=== PATIENT | female | born 1990 | race Caucasian/White ===

== ENCOUNTER 2017-03-01 00:04 | Emergency (ER) | payer OTHER ==
[~2017-03-01] VITALS: Ht 175.3 cm; Wt 108.3 kg
--- NOTE | 2017-03-01 00:53 | PHYS DOC ---
General Chief Complaint: NEEDLE STICK Stated Complaint: STABBED WITH SYRINGE Time Seen by MD: 00:09 Source: patient Exam Limitations: no limitations Problems: History of Present Illness Initial Comments Patient is a 26-year-old female employee at [employer] since the emergency department for worker's comp evaluation of needle stick injury. 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 One of the needles was uncapped it was a 21-gauge 1-1/2 inch clean appearing needle that grazed her left thumb becoming very slightly embedded in her epidermis before she could remove it. No bleeding she irrigated the area and reported to her employer sent her for testing. On arrival she is upset her blood pressure is elevated but she denies any related symptoms including no chest pain trouble breathing headache or focal neurologic deficit. Onset: just prior to arrival Severity: mild Pain/Injury Location: left thumb Method of Injury: other Modifying Factors: improves with other Allergies: Coded Allergies: Penicillins (Verified Allergy, Intermediate, 03/01/17) Past Medical History Medical History: no pertinent history Surgical History: noncontributory Social History Smoker: non-smoker Alcohol: none Drugs: none Review of Systems Constitutional: denies chills, denies diaphoresis, denies fever Respiratory: denies cough, denies shortness of breath Cardiovascular: denies chest pain, denies palpitations Gastrointestinal: denies diarrhea, denies nausea, denies vomiting Musculoskeletal: denies back pain, denies joint swelling, denies neck pain Skin: see HPI Physical Exam General Appearance: WD/WN, obese Neck: non-tender, supple Cardiovascular/Respiratory: normal peripheral pulses, no respiratory distress Hand: normal inspection, non-tender Neurologic/Tendon: normal sensation, normal motor functions, normal tendon functions, responds to pain, no evidence tendon injury Psychiatric: alert, oriented x 3 Skin: normal color, warm/dry Orders, Labs, Meds Urine test is negative HIV and acute hepatitis panel studies drawn. Facility needle stick packet reviewed, by their criteria no post exposure prophylaxis is indicated. As tetanus status unknown Tdap administered in the emergency department. I discussed close follow-up with her employer for results and further evaluation and testing/treatment as needed. Patient expressed agreement and understanding with treatment plan. Departure Time of Disposition: 00:51 Disposition: 01 HOME, SELF-CARE Diagnosis: needle stick injury, body fluid exposure Condition: GOOD Patient Instructions: Body Fluid Exposure, Needle Stick Injury, [id number], VIS, Tetanus, Diphtheria (Td); Tetanus, Diphtheria, Pertussis (Tdap) - CDC Additional Instructions: Please review the patient education materials given by ED staff. Follow-up with your employer for results and further treatment and testing if indicated. Return to ED with new or changing symptoms and as needed. KATIE DOVER DO Mar 01, 2017 00:53
[2017-03-01 01:05] VITALS: BP 118/85
[2017-03-01] MEDS ORDERED: DIPHTH,PERTUSS(ACELL),TET TOX 0.5 ML DISP.SYRIN. VAX IM ONE (01:30)
[2017-03-02 14:08] LABS: HCV ANTIBODY <0.1 s/co ratio (0.0-0.9); HEP A IGM ABDY Negative (Negative)
== END 2017-03-01 01:08 | disposition home or self-care (01) ==
LOC: ER 00:04
DX: S69.92XA Unspecified injury of left wrist, hand and finger(s), initial encounter (principal); Z77.21 Contact with and (suspected) exposure to potentially hazardous body fluids; Z88.0 Allergy status to penicillin; W46.0XXA Contact with hypodermic needle, initial encounter; Y93.89 Activity, other specified; Y99.0 Civilian activity done for income or pay; Y92.89 Other specified places as the place of occurrence of the external cause
CPT/HCPCS: 36415; 80074; 81025; 86701; 86702; 86703; 87535; 90471; 90715; 99284-25

== ENCOUNTER 2018-10-31 01:30 | Emergency (ER) | payer OTHER ==
[~2018-10-31] VITALS: Ht 172.7 cm; Wt 113.4 kg
[2018-10-31 01:51] VITALS: BP 133/86
--- NOTE | 2018-10-31 01:51 | ED.ADGEN ---
Past History Past Medical History: Bronchitis, Gallstones Past Surgical History: Cholecystectomy Alcohol Use: None Drug Use: None Adult General Chief Complaint Chief Complaint ".. 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 and it was between building.. and I got a sharp.. pop like sensation,, in my Lt. lower back.. and then bad back pain.. it radiates all the way down my Lt. leg. into my foot... ".. " I hurt it about 8 (2000 hrs).. but it not gotten better.. ".. 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 Patient rates her pain as severe. Patient states low back with us injured pushing a cart while at work. Patient developed left lower flank. Lumbar muscle spasm and radiation of pain down her sciatic nerve to her foot.. Injury occurred approximately 2000 hours. Patient denies any problems with defecation or urination. No saddle loss. Donald engel denies any history of fever or chills. Patient denies any history immunosuppression. Patient denies previous history of back injury. Pain is exacerbated with straight leg lift on the left. Patient is ambulatory with limp. Review of Systems Review of Systems Constitutional: Denies fever or chills [] Eyes: Denies change in visual acuity, redness, or eye pain [] HENT: Denies nasal congestion or sore throat [] Respiratory: Denies cough or shortness of breath [] Cardiovascular: No additional information not addressed in HPI [] GI: Denies abdominal pain, nausea, vomiting, bloody stools or diarrhea [] : Denies dysuria or hematuria [] Musculoskeletal: Plaints of lower lumbar back pain and sciatica on the left Integument: Denies rash or skin lesions [] Neurologic: Denies headache, focal weakness or sensory changes [] Endocrine: Denies polyuria or polydipsia [] All other systems were reviewed and found to be within normal limits, except as documented in this note. Family History Family History Noncontributory Current Medications Current Medications Current Medications Medications (Trade) Dose Ordered Sig/Dominique Start Time Stop Time Status Last Admin Dose Admin Acetaminophen (Tylenol) 1,000 mg 1X ONCE 10/31/18 02:30 10/31/18 02:55 DC 10/31/18 02:34 1,000 MG Ketorolac Tromethamine (Toradol Im) 60 mg 1X ONCE 10/31/18 02:30 10/31/18 02:55 DC 10/31/18 02:34 60 MG Methylprednisolone Acetate (DEPO-Medrol IM) 40 mg 1X ONCE 10/31/18 02:30 10/31/18 02:55 DC 10/31/18 02:34 40 MG Allergies Allergies Allergies Coded Allergies Type Severity Reaction Last Updated Verified Penicillins Allergy Intermediate 03/01/17 Yes Physical Exam Physical Exam Constitutional: Well developed, well nourished, in acute distress, non-toxic appearance. [] HENT: Normocephalic, atraumatic, bilateral external ears normal, oropharynx moist, no oral exudates, nose normal. [] Eyes: PERRLA, EOMI, conjunctiva normal, no discharge. [] Neck: Normal range of motion, no tenderness, supple, no stridor. [] Cardiovascular:Heart rate regular rhythm, no murmur [] Lungs & Thorax: Bilateral breath sounds clear to auscultation [] Abdomen: Bowel sounds normal, soft, no tenderness, no masses, no pulsatile masses. [] Skin: Warm, dry, no erythema, no rash. [] Back: No tenderness, no CVA tenderness. [] Extremities: No tenderness, no cyanosis, no clubbing, ROM intact, no edema. [] Neurologic: Alert and oriented X 3, normal motor function, normal sensory function, no focal deficits noted. [] Psychologic: Affect normal, judgement normal, mood normal. [] Current Patient Data Vital Signs Vital Signs Date Time Temp Pulse Resp B/P (MAP) Pulse Ox O2 Delivery O2 Flow Rate FiO2 10/31/18 01:51 98.3 94 18 99 Room Air Lab Results Laboratory Tests Test 10/31/18 01:40 10/31/18 01:55 Urine Collection Type Unknown Urine Color Yellow Urine Clarity Hazy Urine pH 5.5 Urine Specific [place] >=1.030 Urine Protein Trace (NEG-TRACE) Urine Glucose (UA) Neg mg/dL (NEG) Urine Ketones (Stick) Neg mg/dL (NEG) Urine Blood Neg (NEG) Urine Nitrite Neg (NEG) Urine Bilirubin Neg (NEG) Urine Urobilinogen Dipstick 0.2 mg/dL (0.2 mg/dL) Urine Leukocyte Esterase Neg (NEG) Urine RBC 1-2 /HPF (0-2) Urine WBC Occ /HPF (0-4) Urine Squamous Epithelial Cells Mod /LPF Urine Bacteria Few /HPF (0-FEW) Urine Mucus Slight /LPF Urine Opiates Screen Neg (NEG) Urine Methadone Screen Neg (NEG) Urine Barbiturates Neg (NEG) Urine Phencyclidine Screen Neg (NEG) Urine Amphetamine/Methamphetamine Neg (NEG) Urine Benzodiazepines Screen Neg (NEG) Urine Cocaine Screen Neg (NEG) Urine Cannabinoids Screen Neg (NEG) Urine Ethyl Alcohol Neg (NEG) POC Urine HCG, Qualitative hcg negative (Negative) EKG EKG [] Radiology/Procedures Radiology/Procedures [][address] [address] IMAGING REPORT Signed PATIENT: POP WAN ACCOUNT: [id number] : 1990 LOCATION: ER AGE: 28 SEX: F EXAM STATUS: REG ER ORD. PHYSICIAN: KVNG VEGA MD REASON: back injury [facility] PROCEDURE: CT LUMBAR SPINE WO CONTRAST CT LUMBAR SPINE WO CONTRAST dated 10/31/2018 2:50 AM Indication: Back pain. Recent injury. Comparison: None Technique: Contiguous axial imaging of lumbar spine performed with thin cut coronal and sagittal reconstructions. One or more of the following individualized dose reduction techniques were utilized for this examination: 1. Automated exposure control 2. Adjustment of the mA and/or kV according to patient size 3. Use of iterative reconstruction technique Findings: Sagittal alignment is anatomic. Vertebral body heights are maintained. Mild endplate hypertrophic changes throughout. No evidence of fracture. Posterior elements are intact. There is mild broad-based posterior bulging at L3-L4 and L4-L5 and L5-S1. No significant central canal compromise. The bony foramen are adequate. Images of the retroperitoneum are unremarkable. Mild sclerotic changes at the bilateral SI joint. IMPRESSION: 1. No evidence of fracture or malalignment. 2. Mild multilevel spondylosis. Electronically signed by: Stalin Krause MD (10/31/2018 3:18 AM) [id number] DICTATED AND SIGNED BY: STALIN KRAUSE MD DATE: 10/31/18 0318 CC: KVNG VEGA MD; PCP,NO ~ Course & Med Decision Making Course & Med Decision Making Pertinent Labs and Imaging studies reviewed. (See chart for details).. Ice packs as needed. Take Flexeril 10 and Vicoprofen for marked discomfort and muscle spasms. Tylenol and Ibuprofen as needed for flores. Follow up with work comp. Return if any concerns. [] Final Impression Final Impression 1. Back strain 2. Sciatica[] Dragon Disclaimer Dragon Disclaimer This electronic medical record was generated, in whole or in part, using a voice recognition dictation system. Dragon Disclaimer This chart was dictated in whole or in part using Voice Recognition software in a busy, high-work load, and often noisy Emergency Department environment. It may contain unintended and wholly unrecognized errors or omissions. KVNG VEGA MD Oct 31, 2018 01:51
[2018-10-31 02:05] LABS: BARBITURATES NEG (NEG); BENZODIAZEPINES NEG (NEG); CANNABINOIDS NEG (NEG); COCAINE NEG (NEG); METHADONE NEG (NEG); OPIATES NEG (NEG); PHENCYCLIDINE NEG (NEG)
[2018-10-31 02:07] LABS: BACTERIA,URINE FEW /HPF (0-FEW); BILIRUBIN,URINE NEG (NEG); CLARITY,URINE HAZY; COLOR,URINE YELLOW; GLUCOSE,URINE NEG (NEG); NITRITE,URINE NEG (NEG); SQUAMOUS EPITHELIAL CELL,UR MOD /LPF; UROBILINOGEN,URINE 0.2 mg/dL (0.2 mg/dL); WBC,URINE OCC /HPF (0-4)
[2018-10-31 02:08] LABS: AMPHETAMINE/METHAMPHETAMINE NEG (NEG)
[2018-10-31] MEDS ORDERED: KETOROLAC 60 MG/2 ML VIAL. IM ONE (02:30)
[2018-10-31] MEDS ORDERED: ACETAMINOPHEN 500 MG TABLET PO ONE (02:30)
[2018-10-31] MEDS ORDERED: methylPREDNISolone ACETATE 40 MG/ML VIAL. IM ONE (02:30)
--- NOTE | 2018-10-31 03:21 | RAD ---
CT LUMBAR SPINE WO CONTRAST dated 10/31/2018 2:50 AM Indication: Back pain. Recent injury. Comparison: None Technique: Contiguous axial imaging of lumbar spine performed with thin cut coronal and sagittal reconstructions. One or more of the following individualized dose reduction techniques were utilized for this examination: 1. Automated exposure control 2. Adjustment of the mA and/or kV according to patient size 3. Use of iterative reconstruction technique Findings: Sagittal alignment is anatomic. Vertebral body heights are maintained. Mild endplate hypertrophic changes throughout. No evidence of fracture. Posterior elements are intact. There is mild broad-based posterior bulging at L3-L4 and L4-L5 and L5-S1. No significant central canal compromise. The bony foramen are adequate. Images of the retroperitoneum are unremarkable. Mild sclerotic changes at the bilateral SI joint. IMPRESSION: 1. No evidence of fracture or malalignment. 2. Mild multilevel spondylosis. Electronically signed by: Stalin Krause MD (10/31/2018 3:18 AM) [facility]
[2018-10-31] MEDS ORDERED: HYDR-1179 PO (03:32)
[2018-10-31] MEDS ORDERED: CYCL-331 PO (03:32)
== END 2018-10-31 03:50 | disposition home or self-care (01) ==
LOC: ER 01:30
DX: S39.012A Strain of muscle, fascia and tendon of lower back, initial encounter (principal); M54.42 Lumbago with sciatica, left side; Z90.49 Acquired absence of other specified parts of digestive tract; Z88.0 Allergy status to penicillin; X50.9XXA Other and unspecified overexertion or strenuous movements or postures, initial encounter; Y93.89 Activity, other specified; Y92.89 Other specified places as the place of occurrence of the external cause; Y99.0 Civilian activity done for income or pay
CPT/HCPCS: 36415; 72131; 80307; 81001; 81025; 96372; 99285; J1030; J1885

== ENCOUNTER 2018-12-20 13:48 | Emergency (ER) | payer SELFPAY ==
[~2018-12-20] VITALS: Ht 172.7 cm; Wt 106.6 kg
[~2018-12-20 13:48] MED LIST: CYCL-331 PO; HYDR-1179 PO
[2018-12-20 13:50] VITALS: BP 183/96
[2018-12-20] MEDS ORDERED: CLIN150C14 PO (14:11)
[2018-12-20] MEDS ORDERED: MELO7.5T29 PO (14:11)
--- NOTE | 2018-12-20 14:11 | PHYS DOC ---
Past History Past Medical History: Bronchitis, Gallstones Past Surgical History: Cholecystectomy Smoking: Cigarettes Alcohol Use: None Drug Use: None Adult General Chief Complaint Chief Complaint: SKIN RASH/ABSCESS HPI HPI Patient is a 28-year-old female presents complaining of a rash and pain to her right jaw. This started several days ago. No relief with diqy-yru-bahdkpv medicines. No pain prior to the appearance of the rash. No fever. She notes some lumps as well in her neck which are uncomfortable. No fever. No difficulty swallowing. No difficulty breathing. Nothing makes the symptoms better or worse. Symptoms are moderate in intensity.[] Review of Systems Review of Systems Constitutional: Denies fever or chills [] Eyes: Denies change in visual acuity, redness, or eye pain [] HENT: Denies nasal congestion or sore throat [] Respiratory: Denies cough or shortness of breath [] Cardiovascular: No chest pain or palpitations[] GI: Denies abdominal pain, nausea, vomiting, bloody stools or diarrhea [] : Denies dysuria or hematuria [] Musculoskeletal: Denies back pain or joint pain [] Integument: See history of present illness[] Neurologic: Denies headache, focal weakness or sensory changes [] Endocrine: Denies polyuria or polydipsia [] All other systems were reviewed and found to be within normal limits, except as documented in this note. Allergies Allergies Allergies Coded Allergies Type Severity Reaction Last Updated Verified Penicillins Allergy Intermediate 03/01/17 Yes Physical Exam Physical Exam Constitutional: Well developed, well nourished, no acute distress, non-toxic appearance. [] HENT: Normocephalic, atraumatic, bilateral external ears normal, TMs are clear without any blood or fluid, oropharynx moist, no oral exudates, nose normal. [] Eyes: PERRLA, EOMI, conjunctiva normal, no discharge. [] Neck: Normal range of motion, no tenderness, supple, no stridor. [] Cardiovascular:Heart rate regular rhythm, no murmur [] Lungs & Thorax: Bilateral breath sounds clear to auscultation [] Abdomen: Not examined. [] Skin: Warm, dry, erythematous rash with right jaw line. This is approximately 4 cm x 2 cm. There are some vesicles present. Anterior chain cervical lymphade nopathy is present as well. No nuchal rigidity. [] Back: No tenderness, no CVA tenderness. [] Extremities: No tenderness, no cyanosis, no clubbing, ROM intact, no edema. [] Neurologic: Alert and oriented X 3, normal motor function, normal sensory function, no focal deficits noted. [] Psychologic: Affect normal, judgement normal, mood normal. [] EKG EKG [] Radiology/Procedures Radiology/Procedures [] Course & Med Decision Making Course & Med Decision Making Pertinent Labs and Imaging studies reviewed. (See chart for details) Medical decision making: Patient appears to have impetigo. There is no evidence of systemic toxicity. No evidence of airway compromise. No Moura-Ck syndrome, toxic epidural necrolysis, nor staph scalded skin syndrome. We'll treat her with oral outpatient medicine. ED course: Patient arrived, was placed in bed, and tolerated exam well. 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 Discussed findings and plan with the patient who voiced understanding. All questions were answered. She was discharged in improved condition.[] Dragon Disclaimer Dragon Disclaimer This electronic medical record was generated, in whole or in part, using a voice recognition dictation system. Departure Departure: Impression: Primary Impression: Impetigo Disposition: HOME, SELF-CARE Condition: IMPROVED Referrals: PCP,TAWNYA (PCP) Patient Instructions: Impetigo Additional Instructions: Keep the area clean and dry. Follow-up with your regular doctor in 2 days. If you do not have regular doctor list of local clinics will be provided for you. Stop smoking! Your blood pressure was noted to be elevated today. This is something that should be followed by your regular doctor. Return to the ER if worsening rash, fever of more than 101, difficulty breathing, or any other concerns. Scripts Clindamycin Hcl (CLINDAMYCIN HCL) 150 Mg Capsule 2 CAP PO QID for impetigo, #80 CAP Prov: PEDRO LUIS MURO DO 12/20/18 Meloxicam (MELOXICAM) 7.5 Mg Tablet 7.5 MG PO DAILY for PAIN, #20 TAB Prov: PEDRO LUIS MURO DO 12/20/18 PEDRO LUIS MURO DO Dec 20, 2018 14:11
== END 2018-12-20 14:15 | disposition home or self-care (01) ==
LOC: ER 13:48
DX: L01.00 Impetigo, unspecified (principal); R68.84 Jaw pain; F17.210 Nicotine dependence, cigarettes, uncomplicated; Z88.0 Allergy status to penicillin
CPT/HCPCS: 99283

== ENCOUNTER 2019-02-18 11:54 | Emergency (ER) | payer SELFPAY ==
[~2019-02-18] VITALS: Ht 172.7 cm; Wt 111.1 kg
[~2019-02-18 11:54] MED LIST changes: +CLIN150C14 PO; +MELO7.5T29 PO
[2019-02-18] MEDS ORDERED: IPRATRPIUM/ALBUTEROL 0.5/2.5MG 3 ML NEBU. NEB ONE (12:15)
--- NOTE | 2019-02-18 12:19 | PHYS DOC ---
Past History Past Medical History: Bronchitis, Gallstones Past Surgical History: Cholecystectomy Smoking: Cigarettes, Quit Less Than 1 Year Alcohol Use: None Drug Use: None Adult General Chief Complaint Chief Complaint: FLU SYMPTOM HPI HPI Patient is a 28-year-old female presents with a cough for the past month. Symptoms became worse over the past 3-4 days with head and sinus congestion and runny nose. She reports a fever of 102 2 days ago. No relief with ovzb-dql-ncwvhtl medicines to include TheraFlu and Mucinex. She stopped smoking approximately a month ago due to this persistent cough. She has had no out of the country travel. No sick contacts. Some nausea and a couple of episodes of vomiting but is otherwise able to tolerate oral intake. No dysuria or hematuria. No shaking chills. Symptoms are moderate in intensity.[] Review of Systems Review of Systems Constitutional: See history of present illness[] Eyes: Denies change in visual acuity, redness, or eye pain [] HENT: See history of present illness[] Respiratory: Denies shortness of breath, see history of present illness [] Cardiovascular: No chest pain or palpitations[] GI: Denies abdominal pain, nausea, vomiting, bloody stools or diarrhea [] : Denies dysuria or hematuria [] Musculoskeletal: Denies back pain or joint pain [] Integument: Denies rash or skin lesions [] Neurologic: Denies headache, focal weakness or sensory changes [] Endocrine: Denies polyuria or polydipsia [] All other systems were reviewed and found to be within normal limits, except as documented in this note. Allergies Allergies Allergies Coded Allergies Type Severity Reaction Last Updated Verified Penicillins Allergy Intermediate 03/01/17 Yes Physical Exam Physical Exam Constitutional: Well developed, well nourished, no acute distress, non-toxic appearance. [] HENT: Normocephalic, atraumatic, bilateral external ears normal, oropharynx moist, no oral exudates, nose normal. [] Eyes: PERRLA, EOMI, conjunctiva normal, no discharge. [] Neck: Normal range of motion, no tenderness, supple, no stridor. [] Cardiovascular:Heart rate is tachycardic in the 110s with a regular rhythm, no murmur [] Lungs & Thorax: Bilateral inspiratory and expiratory wheezes throughout, no increased work of breathing, speaks full sentences[] Abdomen: Bowel sounds normal, soft, no tenderness, no masses, no pulsatile masses. [] Skin: Warm, dry, no erythema, no rash. [] Back: No tenderness, mild bilateral CVA tenderness. [] Extremities: No tenderness, no cyanosis, no clubbing, ROM intact, no edema. [] Neurologic: Alert and oriented X 3, normal motor function, normal sensory function, no focal deficits noted. [] Psychologic: Affect normal, judgement normal, mood normal. [] Current Patient Data Vital Signs Vital Signs Date Time Temp Pulse Resp B/P (MAP) Pulse Ox O2 Delivery O2 Flow Rate FiO2 02/18/19 12:02 99.6 118 16 93 Room Air EKG EKG [] Radiology/Procedures Radiology/Procedures PROCEDURE: CHEST PA & LATERAL Indication: Cough and wheezing TECHNIQUE: 2 views of the chest COMPARISON: None FINDINGS: Heart is normal in size. Patchy opacities are seen in the lingula. Mild interstitial opacities bilaterally. No pneumothorax or effusion. Visualized bony thorax within normal limits. IMPRESSION: Findings of mild bronchitis. Lingular pneumonia.[] Course & Med Decision Making Course & Med Decision Making Pertinent Labs and Imaging studies reviewed. (See chart for details) ED course: Patient arrived, was placed in bed, and tolerated exam well. She was given a breathing treatment which improved her breath sounds. She reported feeling better after the breathing treatment. She was transferred to and from radiology with any complications. After return of laboratory and imaging findings, these were discussed with the patient voiced understanding. All questions were answered. She was discharged in improved condition with all ques tions answered. Decision making: Patient appears to have a lingular infiltrate. We'll treat her with oral outpatient antibiotics. No evidence of multilobar pneumonia. Nontoxic patient. Will also prescribed prescription strength cough medicines. While she is concerned about flu symptoms, her most recent set of symptoms started approximately 4 days ago and so we'll not order a flu panel because it will not change treatment given that the timeframe for Tamiflu is 48 hours from onset of symptoms. There is no evidence of oral intake intolerance. Nontoxic patient.[] Dragon Disclaimer Dragon Disclaimer This electronic medical record was generated, in whole or in part, using a voice recognition dictation system. Departure Departure: Impression: Primary Impression: Pneumonia Disposition: HOME, SELF-CARE Condition: IMPROVED Referrals: PCP,NO (PCP) Patient Instructions: Pneumonia, Adult Additional Instructions: Drink plenty of fluids. Take the medication as prescribed. Follow-up with your regular doctor in 2 days. If you have no regular doctor a list of local clinics will be provided. Return to the ER if worsening difficulty breathing, or any other concerns. Scripts D-Methorphan Hb/Prometh Hcl (PROMETHAZINE-DM SYRUP) 118 Ml Syrup 5 ML PO PRN Q4HRS for cough and congestion, #120 ML Prov: PEDRO LUIS MURO DO 02/18/19 Albuterol Sulfate (VENTOLIN HFA INHALER) 18 Gm Hfa.aer.ad 2 PUFF IH PRN Q4HRS PRN for FOR ASTHMA, #1 INHALER 0 Refills Prov: PEDRO LUIS MURO DO 02/18/19 Azithromycin (AZITHROMYCIN TABLET) 250 Mg Tablet 1 PKG PO UD for pneumonia for 5 Days, #6 TAB 0 Refills 2 the first day followed by 1 for days 2-5 Prov: PEDRO LUIS MURO DO 02/18/19 Problem Qualifiers Primary Impression: Pneumonia Pneumonia type: due to unspecified organism Laterality: left Lung location: unspecified part of lung Qualified Codes: J18.9 - Pneumonia, unspecified organism PEDRO LUIS MURO DO Feb 18, 2019 12:19
[2019-02-18 12:51] LABS: BILIRUBIN,URINE NEG (NEG); CLARITY,URINE CLEAR; COLOR,URINE YELLOW; GLUCOSE,URINE NEG (NEG); NITRITE,URINE NEG (NEG); UROBILINOGEN,URINE 0.2 mg/dL (0.2 mg/dL)
--- NOTE | 2019-02-18 12:59 | RAD ---
Indication: Cough and wheezing TECHNIQUE: 2 views of the chest COMPARISON: None FINDINGS: Heart is normal in size. Patchy opacities are seen in the lingula. Mild interstitial opacities bilaterally. No pneumothorax or effusion. Visualized bony thorax within normal limits. IMPRESSION: Findings of mild bronchitis. Lingular pneumonia. Electronically signed by: Casey Stern DO (02/18/2019 12:56 PM) [facility]
[2019-02-18] MEDS ORDERED: AZIT250T6 PO (13:13)
[2019-02-18] MEDS ORDERED: ALBU2.5V8 IH (13:13)
[2019-02-18] MEDS ORDERED: PROM118S9 PO (13:14)
[2019-02-18 13:22] VITALS: BP 136/89
== END 2019-02-18 13:20 | disposition home or self-care (01) ==
LOC: ER 11:54
DX: J18.9 Pneumonia, unspecified organism (principal); Z87.891 Personal history of nicotine dependence; Z88.0 Allergy status to penicillin
CPT/HCPCS: 71046; 81003; 81025; 94640; 99284; J7620

== ENCOUNTER 2019-05-18 16:33 | Emergency (ER) | payer SELFPAY ==
[~2019-05-18] VITALS: Ht 175.3 cm; Wt 117.7 kg
[~2019-05-18 16:33] MED LIST changes: +ALBU2.5V8 IH; +AZIT250T6 PO; +PROM118S9 PO
--- NOTE | 2019-05-18 16:42 | PHYS DOC ---
Past History Past Medical History: Bronchitis, Gallstones Past Surgical History: Cholecystectomy Smoking: Cigarettes, Quit Less Than 1 Year Alcohol Use: None Drug Use: None Adult General Chief Complaint Chief Complaint: COUGH HPI HPI 29F with PMH of asthma, tobacco abuse, p/w URI Sx over last few weeks, primarily productive cough, nasal congestion and SOA with wheezing. Daily smoker, but has not smoked for the last couple weeks due to her illness. No CP or fever. Also having some mild posttussive emesis, nonbloody, without abd pain, diarrhea, or other GI/ complaints. No aggravating or alleviating factors. Review of Systems Review of Systems General: No fevers, chills. Eyes: No blurred vision, diplopia. ENT: No sore throat. Reports nasal congestion. CV: No chest pain, edema. Resp: Reports wheezing, shortness of breath, cough. GI: No abdominal pain. Reports posttussive emesis. : No dysuria, hematuria. Neuro: No headache, dizziness. MSK: No myalgia, arthralgia. Skin: No acute rash, lesion. All other systems were reviewed and found to be within normal limits, except as documented in this note. Allergies Allergies Allergies Coded Allergies Type Severity Reaction Last Updated Verified Penicillins Allergy Intermediate 03/01/17 Yes Physical Exam Physical Exam Gen: NAD. Head: NC/AT Eyes: No scleral icterus. No conjunctival injection. ENT: MMM. Posterior OP clear. Neck: Supple. NT. No elevated JVD. CV: RRR. Peripheral pulses intact. Resp: Global wheezing. Faint rhonchi. No rales. Abd: Soft. NT. ND. MSK: No peripheral cyanosis. No edema. No calf tenderness or asymmetry. Neuro: Awake and alert. Psych: Appropriate mood and affect. EKG EKG [] Radiology/Procedures Radiology/Procedures CXR: No confluent infiltrates. Course & Med Decision Making Course & Med Decision Making Pertinent Labs and Imaging studies reviewed. (See chart for details) In summary, 29F with PMH asthma, p/w a few weeks of URI Sx, recent development of SOA and wheezing. HDS. Normal pulse ox RA. Wheezing without increased WOB on exam. CXR without infiltrate. Received neb and prednisone with improvement in wheezing. Remains well appearing and nontoxic. No clinical S/Sx DVT, doubt PE. Will DC home with Rx prednisone 40 mg daily x5 days, albuterol MDI. Return precautions given. Dragon Disclaimer Dragon Disclaimer This electronic medical record was generated, in whole or in part, using a voice recognition dictation system. Departure Departure: Impression: Primary Impression: Viral syndrome Additional Impression: Asthma exacerbation Disposition: HOME, SELF-CARE Condition: STABLE Referrals: PCP,NO (PCP) Patient Instructions: Asthma, Adult, [id number] Scripts Albuterol Sulfate (PROAIR HFA INHALER) 8.5 Gm Hfa.aer.ad 2 PUFF IH PRN Q4-6HRS PRN for wheezing for 21 Days, #1 INHALER 0 Refills Prov: ELICIA POLK DO 05/18/19 Prednisone (PREDNISONE) 50 Mg Tablet 1 TAB PO DAILY for asthma, #5 TAB You received this medication in the emergency room today. You will starting your next dose tomorrow. Prov: ELICIA POKL DO 05/18/19 Problem Qualifiers Additional Impression: Asthma exacerbation Asthma severity: mild Asthma persistence: unspecified Qualified Codes: J45.901 - Unspecified asthma with (acute) exacerbation ELICIA POLK DO May 18, 2019 16:42
[2019-05-18] MEDS ORDERED: IPRATRPIUM/ALBUTEROL 0.5/2.5MG 3 ML NEBU. NEB ONE (17:15)
[2019-05-18] MEDS ORDERED: predniSONE 20 MG TABLET PO ONE (17:15)
--- NOTE | 2019-05-18 17:17 | RAD ---
PA and lateral chest. HISTORY: Cough PA and lateral views were taken of the chest. Heart is normal in size. There is no pleural effusion. There are no confluent infiltrates. There has been an improvement compared to the study of February 18 in the left lung base. IMPRESSION: 1. No acute infiltrates. Electronically signed by: Ryland Medrano MD (05/18/2019 5:15 PM) [id number]
[2019-05-18] MEDS ORDERED: PRED50TA PO (17:27)
[2019-05-18] MEDS ORDERED: ALBU2.5V8 IH (17:27)
[2019-05-18 17:50] VITALS: BP 142/93
== END 2019-05-18 17:50 | disposition home or self-care (01) ==
LOC: ER 16:33
DX: J45.901 Unspecified asthma with (acute) exacerbation (principal); B34.9 Viral infection, unspecified; Z87.891 Personal history of nicotine dependence; Z88.0 Allergy status to penicillin
CPT/HCPCS: 71046; 94640; 99283; J7512; J7620

== ENCOUNTER 2019-06-21 22:55 | Inpatient (IN) | payer SELFPAY ==
[~2019-06-21] VITALS: Ht 175.3 cm; Wt 118.0 kg
[~2019-06-21 22:55] MED LIST changes: +PRED50TA PO
[2019-06-21] MEDS: IV NORMAL SALINE 1,000ML 1,000 ML IV ONE (23:45)
[2019-06-22] VITALS (10 sets, daily range): BP systolic 119–155; BP diastolic 70–103
[2019-06-22 00:24] LABS: BASO # 0.1 x10^3/uL (0.0-0.2); BASO % 1 % (0-3); EOS # 0.7 x10^3/uL (0.0-0.7); EOS % 6 % (0-3); HEMOGLOBIN 14.9 g/dL (12.0-15.5); LYMPH # 2.3 x10^3/uL (1.0-4.8); LYMPH % 19 % (24-48); MEAN CORPUSCULAR HEMOGLOBIN 28 pg (25-35); MEAN CORPUSCULAR HGB CONC 32 g/dL (31-37); MEAN CORPUSCULAR VOLUME 86 fL (79-100); MONO # 0.6 x10^3/uL (0.0-1.1); MONO % 5 % (0-9); NEUT # 8.7 x10^3uL (1.8-7.7); NEUT % 70 % (31-73); PLATELET COUNT 298 x10^3/uL (140-400); RED BLOOD COUNT 5.33 x10^6/uL (3.50-5.40); RED CELL DISTRIBUTION WIDTH 14.7 % (11.5-14.5); WHITE BLOOD COUNT 12.4 x10^3/uL (4.0-11.0)
[2019-06-22 00:35] LABS: CREATININE 0.7 mg/dL (0.6-1.0); GFR 98.3; POTASSIUM 3.7 mmol/L (3.5-5.1)
[2019-06-22 00:39] LABS: C REACTIVE PROTEIN 10.6 mg/L (0-3.3)
[2019-06-22 00:41] LABS: ALBUMIN 3.6 g/dL (3.4-5.0); ALBUMIN/GLOBULIN RATIO 0.9 (1.0-1.7); TOTAL BILIRUBIN 0.2 mg/dL (0.2-1.0); TOTAL PROTEIN 7.7 g/dL (6.4-8.2)
[2019-06-22 00:52] LABS: INFLUENZA A PATIENT NEGATIVE (NEGATIVE); INFLUENZA B PATIENT NEGATIVE (NEGATIVE)
--- NOTE | 2019-06-22 01:18 | PHYS DOC ---
Past History Past Medical History: Asthma Past Surgical History: Cholecystectomy Smoking: Cigarettes, Quit Less Than 1 Year Alcohol Use: None Drug Use: None Adult General Chief Complaint Chief Complaint: SHORTNESS OF BREATH HPI HPI 29-year-old female presents with cough and wheezing that has been ongoing for the past 3 weeks. Patient reports over the last 2 weeks she has had increased fever and chills with associated body aches. Reports Tmax 103.5. Patient reports now she is having shortness of air with chest wall pain. Patient does have history of asthma and is a current smoker. Patient reports his been using home nebulizer treatments without significant improvement. Patient reports she has been in direct contact with several individuals that have been positive for COVID-19 at [facility]. Patient reports symptoms have worsened and that is why patient presents to ED this evening. Denies . Denies trauma. Denies leg swelling or calf tenderness. Patient was seen in ED here May 18 and given oral steroids and albuterol MDI. Review of Systems Review of Systems Constitutional: Reports fever and chills Eyes: Denies redness or eye pain HENT: Denies nasal congestion or sore throat Respiratory: Reports cough and shortness of breath Cardiovascular: Reports chest wall pain; denies palpitations GI: Denies abdominal pain, nausea, or vomiting : Denies dysuria or hematuria Musculoskeletal: Denies back pain or joint pain Integument: Denies rash or skin lesions Neurologic: Denies headache, focal weakness or sensory changes Complete systems were reviewed and found to be within normal limits, except as documented in this note. Current Medications Current Medications Current Medications Medications (Trade) Dose Ordered Sig/Dominique Start Time Stop Time Status Last Admin Dose Admin Sodium Chloride 1,000 ml @ 1,000 mls/hr 1X ONCE 06/21/19 23:45 06/22/19 00:44 DC 06/21/19 23:45 1,000 MLS/HR Allergies Allergies Allergies Coded Allergies Type Severity Reaction Last Updated Verified Penicillins Allergy Intermediate 05/18/19 Yes Physical Exam Physical Exam Constitutional: Well developed, well nourished, ill appearing but non-toxic appearance HENT: Normocephalic, atraumatic Eyes: Conjunctiva normal, no discharge Neck: Normal range of motion, no tenderness, supple Cardiovascular: Heart rate tachycardia, regular rhythm Lungs & Thorax: Bilateral breath sounds diminished at bases, expiratory wheezes noted Abdomen: Soft, no tenderness Skin: Warm, dry, no erythema, no rash Back: No tenderness, no CVA tenderness Extremities: No tenderness, ROM intact, no edema Neurologic: Alert and oriented X 3, no focal deficits noted Psychologic: Affect normal, judgment normal Current Patient Data Vital Signs Vital Signs Date Time Temp Pulse Resp B/P (MAP) Pulse Ox O2 Delivery O2 Flow Rate FiO2 06/21/19 23:12 99.3 103 20 135/102 (113) 95 Room Air Lab Results Laboratory Tests Test 06/21/19 23:28 06/21/19 23:40 06/22/19 01:02 Influenza Type A (Rapid) Negative (NEGATIVE) Influenza Type B (Rapid) Negative (NEGATIVE) Group A Streptococcus Rapid Negative (NEGATIVE) White Blood Count 12.4 x10^3/uL (4.0-11.0) H Red Blood Count 5.33 x10^6/uL (3.50-5.40) Hemoglobin 14.9 g/dL (12.0-15.5) Hematocrit 46.0 % (36.0-47.0) Mean Corpuscular Volume 86 fL (79-100) Mean Corpuscular Hemoglobin 28 pg (25-35) Mean Corpuscular Hemoglobin Concent 32 g/dL (31-37) Red Cell Distribution Width 14.7 % (11.5-14.5) H Platelet Count 298 x10^3/uL (140-400) Neutrophils (%) (Auto) 70 % (31-73) Lymphocytes (%) (Auto) 19 % (24-48) L Monocytes (%) (Auto) 5 % (0-9) Eosinophils (%) (Auto) 6 % (0-3) H Basophils (%) (Auto) 1 % (0-3) Neutrophils # (Auto) 8.7 x10^3uL (1.8-7.7) H Lymphocytes # (Auto) 2.3 x10^3/uL (1.0-4.8) Monocytes # (Auto) 0.6 x10^3/uL (0.0-1.1) Eosinophils # (Auto) 0.7 x10^3/uL (0.0-0.7) Basophils # (Auto) 0.1 x10^3/uL (0.0-0.2) D-Dimer ([place]) 0.40 mg/L (0.00-0.50) Sodium Level 140 mmol/L (136-145) Potassium Level 3.7 mmol/L (3.5-5.1) Chloride Level 103 mmol/L (98-107) Carbon Dioxide Level 23 mmol/L (21-32) Anion Gap 14 (6-14) Blood Urea Nitrogen 9 mg/dL (7-20) Creatinine 0.7 mg/dL (0.6-1.0) Estimated GFR (Cockcroft-Gault) 98.3 BUN/Creatinine Ratio 13 (6-20) Glucose Level 92 mg/dL (70-99) Lactic Acid Level 1.5 mmol/L (0.4-2.0) Calcium Level 9.0 mg/dL (8.5-10.1) Magnesium Level 2.0 mg/dL (1.8-2.4) Total Bilirubin 0.2 mg/dL (0.2-1.0) Aspartate Amino Transferase (AST) 15 U/L (15-37) Alanine Aminotransferase (ALT) 25 U/L (14-59) Alkaline Phosphatase 58 U/L (46-116) Lactate Dehydrogenase 202 U/L (81-234) C-Reactive Protein 10.6 mg/L (0-3.3) H Total Protein 7.7 g/dL (6.4-8.2) Albumin 3.6 g/dL (3.4-5.0) Albumin/Globulin Ratio 0.9 (1.0-1.7) L POC Urine HCG, Qualitative hcg negative (Negative) EKG EKG [] Radiology/Procedures Radiology/Procedures PROCEDURE: CHEST AP ONLY INDICATION: Shortness of air and cough COMPARISON: May 18, 2019 FINDINGS: Single view of chest obtained. Hypoexpanded examination with mild haziness left lung base. Cardiac silhouette is near the upper limits of normal in size. IMPRESSION: * Hypoexpanded exam with mild opacity at left lung base. Could be secondary to overlap of soft tissue structures with basilar atelectasis but early infiltrate can have this appearance as well. Electronically signed by: Arturo Stover MD (06/22/2019 1:40 AM) [id number] Course & Med Decision Making Course & Med Decision Making Pertinent Labs and Imaging studies reviewed. (See chart for details) Patient presents with history of present illness and physical exam concerning for COVID-19. Patient with history of asthma and is a current smoker. Patient exposed to positive individuals at [facility]. Afebrile upon arrival. Hx of Tmax 103.5 with associated SOA and chest wall pain. Patient with continued symptoms despite treatments at home. Labs obtained and posted to chart. Rapid influenza and strep negative. WBC slightly elevated. CRP elevated. D-dimer negative. Procalcitonin pending. COVID-19 testing pending. CXR with possible mild opacity at left lung base vs atelectasis. Given ongoing symptoms and CXR findings will start empiric antibiotics for CAP with azithromycin and rocephin. Patient requiring admission for further evaluation and treatment. Discussed with Dr. Rivera (hospitalist) who is in agreement with admission. Discussed findings and plan with patient, who acknowledges understanding and agreement. Dragon Disclaimer Dragon Disclaimer This electronic medical record was generated, in whole or in part, using a voice recognition dictation system. Departure Departure: Impression: Primary Impression: Asthma exacerbation Additional Impressions: Exposure to COVID-19 virus Failure of outpatient treatment Disposition: ADMITTED INPATIENT Admitting Physician: Aidan Rivera Condition: STABLE Referrals: PCP,NO (PCP) Problem Qualifiers Primary Impression: Asthma exacerbation Asthma severity: moderate Asthma persistence: persistent Qualified Codes: J45.41 - Moderate persistent asthma with (acute) exacerbation JOHNY LANZA DO Jun 22, 2019 01:18
--- NOTE | 2019-06-22 01:43 | RAD ---
INDICATION: Shortness of air and cough COMPARISON: May 18, 2019 FINDINGS: Single view of chest obtained. Hypoexpanded examination with mild haziness left lung base. Cardiac silhouette is near the upper limits of normal in size. IMPRESSION: * Hypoexpanded exam with mild opacity at left lung base. Could be secondary to overlap of soft tissue structures with basilar atelectasis but early infiltrate can have this appearance as well. Electronically signed by: Arturo Stover MD (06/22/2019 1:40 AM) [id number]
[2019-06-22] MEDS ORDERED: ACETAMINOPHEN 325 MG TABLET PO PRN (01:45)
[2019-06-22 01:51] LABS: BILIRUBIN,URINE NEG (NEG); CLARITY,URINE CLEAR; COLOR,URINE YELLOW; GLUCOSE,URINE NEG (NEG)
[2019-06-22 01:52] LABS: BACTERIA,URINE 0 /HPF (0-FEW); NITRITE,URINE NEG (NEG); RBC,URINE 0 /HPF (0-2); SQUAMOUS EPITHELIAL CELL,UR OCC /LPF; UROBILINOGEN,URINE 0.2 mg/dL (0.2 mg/dL); WBC,URINE OCC /HPF (0-4)
[2019-06-22] MEDS ORDERED: IV NORMAL SALINE 250ML 250 ML ONE (01:59)
[2019-06-22] MEDS ORDERED: AZITHROMYCIN 500 MG VIAL. IV ONE (01:59)
[2019-06-22] MEDS ORDERED: cefTRIAXone SODIUM 1 GM VIAL ONE (01:59)
[2019-06-22] MEDS ORDERED: IV NORMAL SALINE 50ML 50 ML ONE (01:59)
[2019-06-22] MEDS ORDERED: ALBUTEROL SULFATE 2.5 MG/3 ML NEBU. NEB PRN (02:00)
[2019-06-22] MEDS ORDERED: AZITHROMYCIN 500 MG in IV NORMAL SALINE 250ML 250 ML IV ONE (02:00)
[2019-06-22] MEDS ORDERED: ALBUTEROL SULFATE 8GM INHALER. INH PRN (03:30)
[2019-06-22] MEDS ORDERED: GUAI1TBM10 PO (04:33)
--- NOTE | 2019-06-22 09:43 | HP ---
ADMIT DATE: 06/22/2019 ATTENDING PHYSICIAN: Dr. Rivera. CHIEF COMPLAINT: Cough and wheezing for the last 2 weeks. HISTORY OF PRESENT ILLNESS: The patient is a 29-year-old female. 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 For the last 2 weeks, she has had cough, dry and nonproductive. She has had some fevers and chills and body aches. Temperature went up to 103.5. She is now having shortness of breath, wheezing and some pleuritic type chest pain, history of asthma, current smoker up to package a day. She has been using home nebulizer treatment without any significant improvement. She has had direct contact with several individuals who eventually tested positive for COVID-19 in the [facility]. She denied any vomiting, diarrhea. No trauma. No calf tenderness. She was seen in the ED in April, given steroids and albuterol. PAST MEDICAL HISTORY: Significant for asthma. PAST SURGICAL HISTORY: Cholecystectomy. SOCIAL HISTORY: Smoking history. She denies any alcohol or drug use. She is and lives with her and 2 sons, ages 2 and 5 respectively. They are healthy. FAMILY HISTORY: Father is aged 58 with diabetes and in poor health. She is not close with him. Her mom of complications of lupus at age 48. REVIEW OF SYSTEMS: Significant for the myalgias, cough, nonproductive. She is a smoker, some chills. No fevers here at the hospital. No productive sputum. No nausea, vomiting, diarrhea. All other systems reviewed and determined to be negative. CURRENT MEDICINES: Prior to coming in, no prescription meds. She has albuterol at home. ALLERGIES: She has DRUG ALLERGY TO PENICILLIN WHICH CAUSES A RASH. PHYSICAL EXAMINATION: GENERAL: I saw her, this is a pleasant young female. INITIAL VITAL SIGNS: In the ED showed a temperature of 99.3 degrees Fahrenheit, pulse 100 and regular, blood pressure 135/102, oxygen saturation 95% on room air. HEENT: Head is without trauma. Pupils are reactive. Sclerae nonicteric. Oropharynx clear. NECK: Supple, no bruits. LUNGS: Minimal wheezing at the upper airways. No rhonchi. Good breath sounds. CARDIOVASCULAR: Showed regular rhythm. No obvious gallops. Peripheral pulses palpable and full. ABDOMEN: Soft, protuberant. No organomegaly. Bowel sounds are hypoactive. EXTREMITIES: Show no cyanosis or edema. NEUROLOGIC: Findings focally intact. No deficits. PERTINENT LABORATORY STUDY: Influenza A and B screens were negative. Group A streptococcal test was negative. A swab for COVID-19 was sent out and should be available in the next 24 hours. Her BUN and creatinine were 9 and 0.7 mg percent respectively. Lactic acid was 1.5. Hemoglobin was 14.9 g/dL with white count of 12,400. Chest x-ray shows some atelectasis and some tissue overlap in the left base, otherwise clear without any infiltrates. ASSESSMENT: 1. A 29-year-old female smoker with upper respiratory tract infection, probable bronchitis, viral in nature, whether or not this is COVID-19 with previous exposure history remains to be seen. 2. History of asthma. 3. Chronic obstructive pulmonary disease due to smoking history. PLAN: 1. Admit to the ICU. 2. COVID-19 isolation precautions. 3. Nebulizer therapy. 4. If indeed her rapid PCR screen is negative, she can be discharged with cough syrup. If indeed positive, I would favor starting her on hydroxychloroquine and Zithromax if positive. BROCK CONTRERAS MD DR: PAGE/bharat JOB#: [id number] / [id number] ALEXANDER Bianchi MD
--- NOTE | 2019-06-22 13:12 | DS ---
DATE OF DISCHARGE: 06/22/2019 FINAL DISCHARGE DIAGNOSES: 1. Upper respiratory tract infection with bronchitis, probably viral in nature. 2. Rule out COVID-19 infection. 3. Asthma. 4. Chronic obstructive pulmonary disease due to smoking history. HISTORY AND PHYSICAL: This is a 29-year-old female who works at the local [employer]. She has a 2-week history of upper respiratory tract infection, dry nonproductive cough, low-grade fevers and body aches, temperature went up to 103.5. She was having minimal shortness of breath. She had direct contact with several individuals recently [facility]. She denied any vomiting or diarrhea. No trauma. No calf tenderness. She was seen in early April, given steroids and albuterol. PHYSICAL EXAMINATION: Please see the dictated note. PERTINENT LABORATORY AND X-RAY STUDIES: Her chest x-ray showed no acute infiltrates. She had some redundant tissue causing a pattern in the left lower lobe. Otherwise, this was clear. Her COVID-19 swab is still pending at the time of discharge. Hemoglobin 14.9 g/dL, white count 12,400. Electrolytes, BUN and creatinine all within normal range. C-reactive protein was 10. LDH was 202. Chest x-ray as noted. COURSE IN THE HOSPITAL: She was admitted to the ICU under COVID-19 coronavirus isolation. Diet was advanced. She was given nebulizer treatment. She did well. She was doing better. She had no respiratory distress. Her vital signs are stable. She was afebrile by the next day and her respiratory status was stable with good air movement. The COVID-19 swab will not have any results until tomorrow. I had a long discussion with her, she would prefer to go home. If she has a negative COVID-19 test, she does not want to catch it in the hospital. Therefore, I made arrangements for her to self-isolate from her children and significant other until results are back. She can take Tylenol and ibuprofen. If indeed the COVID-19 is positive, we considered calling in a 5-day course of Plaquenil and Zithromax. Therefore, on the second hospital day, the patient was discharged home. We will notify her results of her COVID swab when available first thing tomorrow. She will follow up with her PCP. She was discharged from our hospital in stable condition, improved with definite plans in case that her swab returns positive. BROCK CONTRERAS MD DR: PAGE/bharat JOB#: [id number] / [id number]
== END 2019-06-22 14:25 | disposition home or self-care (01) | DRG 178 ==
LOC: ER 22:55 → ICU 06-22 01:30
PROVIDERS: ADMIT Internal Medicine; ATTEND Internal Medicine
DX: U07.1 COVID-19 (principal); J45.41 Moderate persistent asthma with (acute) exacerbation; F17.200 Nicotine dependence, unspecified, uncomplicated; J06.9 Acute upper respiratory infection, unspecified; J44.9 Chronic obstructive pulmonary disease, unspecified; Z83.3 Family history of diabetes mellitus; Z88.0 Allergy status to penicillin; Z90.49 Acquired absence of other specified parts of digestive tract; Z79.899 Other long term (current) drug therapy
CPT/HCPCS: 36415; 71045; 80053; 81001; 81025; 83605; 83615; 83735; 84145; 85025; 85379; 86140; 87040; 87070; 87804; 87880; 96361; 96365; 96368; J0456; J0696; J7050; J7613; 99285-25; J7030

== ENCOUNTER 2020-06-23 14:10 | Emergency (ER) | payer BC, SELFPAY ==
[~2020-06-23] VITALS: Ht 175.3 cm; Wt 118.0 kg
[~2020-06-23 14:10] MED LIST changes: -CLIN150C14 PO; +CLIN150C15 PO; +GUAI1TBM10 PO; +PROM118S10 PO; -PROM118S9 PO
--- NOTE | 2020-06-23 14:41 | PHYS DOC ---
Past History Past Medical History: Asthma Past Surgical History: Cholecystectomy Smoking: Cigarettes, Quit Less Than 1 Year Alcohol Use: None Drug Use: None General Adult EDM: Chief Complaint: SHORTNESS OF BREATH HPI: HPI: Patient is a 30-year-old female who presents with shortness of breath, cough, chest tightness for the last 11 days. Patient denies any fevers, nausea/vomiting/diarrhea. Patient's been using albuterol inhaler every 4 hours and using her nebulizer daily. Patient reports that she had Covid last May and had albuterol left over. Patient smokes half a pack to a pack a day. "I have not smoked since I got sick 11 days ago". Patient denies chest pain. Review of Systems: Review of Systems: Constitutional: Denies fever or chills Eyes: Denies change in visual acuity HENT: Denies nasal congestion or sore throat Respiratory: Ports nonproductive cough and shortness of breath Cardiovascular: Reports chest tightness, denies edema GI: Denies abdominal pain, nausea, vomiting, bloody stools or diarrhea : Denies dysuria Musculoskeletal: Denies back pain or joint pain Integument: Denies rash Neurologic: Denies headache, focal weakness or sensory changes Endocrine: Denies polyuria or polydipsia Lymphatic: Denies swollen glands Psychiatric: Denies depression or anxiety Allergies: Allergies: Allergies Coded Allergies Type Severity Reaction Last Updated Verified Penicillins Allergy Intermediate 05/18/19 Yes Physical Exam: PE: Constitutional: Well developed, well nourished, no acute distress, non-toxic appearance. [] HENT: Normocephalic, atraumatic, bilateral external ears normal, oropharynx moist, no oral exudates, nose normal. [] Eyes: PERRLA, EOMI, conjunctiva normal, no discharge. [] Neck: Normal range of motion, no tenderness, supple, no stridor. [] Cardiovascular: Sinus tachycardia Lungs & Thorax: Wheezes throughout Abdomen: Bowel sounds normal, soft, no tenderness, no masses, no pulsatile masses. [] Skin: Warm, dry, no erythema, no rash. [] Back: No tenderness, no CVA tenderness. [] Extremities: No tenderness, no cyanosis, no clubbing, ROM intact, no edema. [] Neurologic: Alert and oriented X 3, normal motor function, normal sensory function, no focal deficits noted. [] Psychologic: Affect normal, judgement normal, mood normal. [] Current Patient Data: Vital Signs: Vital Signs Date Time Temp Pulse Resp B/P (MAP) Pulse Ox O2 Delivery O2 Flow Rate FiO2 06/23/20 14:23 98.4 116 24 161/89 (113) 94 Room Air EKG: EKG: [] Radiology/Procedures: Radiology/Procedures: []AP chest. HISTORY: Short of breath AP view was taken of the chest. Lungs are clear. Heart is normal in size. There is no effusion. IMPRESSION: 1. No acute chest disease. Electronically signed by: Ryland Medrano MD (06/23/2020 3:27 PM) [id number] Heart Score: C/O Chest Pain: No Risk Factors: Risk Factors: DM, Current or recent (<one month) smoker, HTN, HLP, family history of CAD, obesity. Risk Scores: Score 0 - 3: 2.5% MACE over next 6 weeks - Discharge Home Score 4 - 6: 20.3% MACE over next 6 weeks - Admit for Clinical Observation Score 7 - 10: 72.7% MACE over next 6 weeks - Early Invasive Strategies Course & Med Decision Making: Course & Med Decision Making Pertinent Labs and Imaging studies reviewed. (See chart for details) [] Patient was seen for a cough, shortness of breath for the last 11 days. Patient has been using her albuterol inhaler every 4 for chest tightness. Patient is also been using nebulizer daily. Chest x-ray was ordered to rule out pneumonia, and which was negative for any acute abnormalities. Patient had wheezing throughout upon assessment. Patient was sinus tachycardia on arrival, fluid bolus given. D-dimer is negative. UA is negative for infection. WBC is slightly elevated at 12.5. Troponin is negative. Patient received a breathing treatment while in the emergency room and also dexamethasone. Patient reports that she feels much better after treatment. Discussed with patient most likely has bronchitis. Sent patient home with azithromycin and Medrol Dosepak. Patient is hemodynamically stable upon discharge. Advised patient to return to emergency room with worsening symptoms or concerns. Dragon Disclaimer: Dragon Disclaimer: This electronic medical record was generated, in whole or in part, using a voice recognition dictation system. Departure Departure: Impression: Primary Impression: Bronchitis Disposition: 01 DC HOME SELF CARE/HOMELESS Condition: STABLE Referrals: PCP,NO (PCP) Patient Instructions: Acute Bronchitis, [id number] Additional Instructions: You were seen in the emergency room for cough and shortness of breath. Your chest x-ray was negative for any acute abnormalities. All of your lab work was unremarkable. You received a breathing treatment while in the emergency room and also a steroid. Sending you home with a prescription for steroids and an antibiotic. Please return to emergency room with worsening symptoms or concerns. Otherwise you may follow-up with your PCP. EMERGENCY DEPARTMENT GENERAL DISCHARGE INSTRUCTIONS Thank you for coming to [facility] (ED) today and trusting us with you care. We trust that you had a positivie experience in our Emergency Department. If you wish to speak to the department management, you may call the director at [phone]. YOUR FOLLOW UP INSTRUCTIONS ARE FOLLOWS: 1. Do you have a private Doctor? If you do not have a private doctor, please ask for a resource list of physicians or clinics that may be able to assist you with follow up care. 2. The Emergency Physician has interpreted your x-rays. The X-Ray specialist will also review them. If there is a change in the findings, you will be notified in 48 hours when at all possible. 3. A lab test or culture has been done, your results will be reviewed and you will be notified if you need a change in treatment. ADDITIONAL INSTRUCTIONS AND INFORMATION: 1. Your care today has been supervised by a physician who is specially trained in emergency care. Many problems require more than one evaluation for a complete diagnosis and treatment. We recommend that you schedule your follow up appointment as recommended to ensure complete treatment of you illness or injury. If you are unable to obtain follow up care and continue to have a problem, or if your condition worsens, we recommend that you return to the ED. 2. We are not able to safely determine your condition over the phone nor are we able to give sound medical advice over the phone. For these safety reasons, if you call for medical advice we will ask you to come to the ED for further evaluation. 3. If you have any questions regarding these discharge instructions please call the ED at [phone]. SAFETY INFORMATION: In the interest of safety, wellness, and injury prevention; we encourage you to wear your sealbelt, if you smoke; quite smoking, and we encourage family to use a protective helmet for bicycling and other sporting events that present an increased risk for head injury. IF YOUR SYMPTOMS WORSEN OR NEW SYMPTOMS DEVELOP, OR YOU HAVE CONCERNS ABOUT YOUR CONDITION; OR IF YOUR CONDITION WORSENS WHILE YOU ARE WAITING FOR YOUR FOLLOW UP APPOINTMENT; EITHER CONTACT YOUR PRIMARY CARE DOCTOR, THE PHYSICIAN WHOSE NAME AND NUMBER YOU WERE GIVEN, OR RETURN TO THE ED IMMEDIATELY. Scripts Azithromycin (AZITHROMYCIN TABLET) 250 Mg Tablet 1 PKG PO UD for bronchitis for 5 Days, #6 TAB 0 Refills 2 the first day followed by 1 for days 2-5 Prov: SAUNDRA THACKER APRN 06/23/20 Methylprednisolone (MEDROL) 4 Mg Tab.ds.pk 1 PKG PO UD for inflammation for 6 Days, #1 PKG 0 Refills Prov: SAUNDRA THACKER APRN 06/23/20 SAUNDRA THACKER APRN Jun 23, 2020 14:41
[2020-06-23] MEDS ORDERED: DEXAMETHASONE SOD PHOS 10 MG/ML VIAL. IVP ONE (14:45)
[2020-06-23] MEDS ORDERED: ALBUTEROL SULFATE 2.5 MG/3 ML NEBU. NEB ONE (14:45)
[2020-06-23] MEDS ORDERED: IV NORMAL SALINE 1,000ML 1,000 ML IV ONE (14:45)
[2020-06-23 15:10] LABS: BASO # 0.1 x10^3/uL (0.0-0.2); BASO % 1 % (0-3); EOS # 1.1 x10^3/uL (0.0-0.7); EOS % 9 % (0-3); HEMOGLOBIN 14.1 g/dL (12.0-15.5); LYMPH # 1.7 x10^3/uL (1.0-4.8); LYMPH % 13 % (24-48); MEAN CORPUSCULAR HEMOGLOBIN 28 pg (25-35); MEAN CORPUSCULAR HGB CONC 33 g/dL (31-37); MEAN CORPUSCULAR VOLUME 85 fL (79-100); MONO # 0.5 x10^3/uL (0.0-1.1); MONO % 4 % (0-9); NEUT # 9.1 x10^3uL (1.8-7.7); NEUT % 73 % (31-73); PLATELET COUNT 316 x10^3/uL (140-400); RED BLOOD COUNT 5.04 x10^6/uL (3.50-5.40); RED CELL DISTRIBUTION WIDTH 14.6 % (11.5-14.5); WHITE BLOOD COUNT 12.5 x10^3/uL (4.0-11.0)
[2020-06-23 15:26] LABS: CALCIUM 9.2 mg/dL (8.5-10.1); CREATININE 0.7 mg/dL (0.6-1.0); GFR 97.6; POTASSIUM 4.3 mmol/L (3.5-5.1)
--- NOTE | 2020-06-23 15:30 | RAD ---
AP chest. HISTORY: Short of breath AP view was taken of the chest. Lungs are clear. Heart is normal in size. There is no effusion. IMPRESSION: 1. No acute chest disease. Electronically signed by: Ryland Medrano MD (06/23/2020 3:27 PM) [id number]
--- NOTE | 2020-06-23 15:31 | EKG ---
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
[2020-06-23 15:35] LABS: BILIRUBIN,URINE NEG (NEG); CLARITY,URINE CLEAR; COLOR,URINE YELLOW; GLUCOSE,URINE NEG (NEG)
[2020-06-23 15:36] LABS: BACTERIA,URINE 0 /HPF (0-FEW); NITRITE,URINE NEG (NEG); RBC,URINE 0 /HPF (0-2); SQUAMOUS EPITHELIAL CELL,UR OCC /LPF; UROBILINOGEN,URINE 0.2 mg/dL (0.2 mg/dL); WBC,URINE 0 /HPF (0-4)
[2020-06-23 15:36] LABS: ALBUMIN 3.5 g/dL (3.4-5.0); ALBUMIN/GLOBULIN RATIO 0.9 (1.0-1.7); TOTAL BILIRUBIN 0.4 mg/dL (0.2-1.0); TOTAL PROTEIN 7.6 g/dL (6.4-8.2)
[2020-06-23] MEDS ORDERED: METH4TAB2 PO (16:07)
[2020-06-23] MEDS ORDERED: AZIT250T6 PO (16:07)
[2020-06-23 16:38] VITALS: BP 156/94
== END 2020-06-23 16:54 | disposition home or self-care (01) ==
LOC: ER 14:10
DX: J45.909 Unspecified asthma, uncomplicated (principal); Z20.822 Contact with and (suspected) exposure to COVID-19; F17.210 Nicotine dependence, cigarettes, uncomplicated; Z88.0 Allergy status to penicillin
CPT/HCPCS: 36415; 71045; 80053; 81001; 83605; 83880; 84484; 85025; 85379; 87040; 93005; 94640; 96361; 96374; 99285; J1100; J7030; J7613; U0003; 81025; C9803; U0005

== ENCOUNTER 2020-07-28 03:06 | Emergency (ER) | payer BC ==
[~2020-07-28] VITALS: Ht 175.3 cm; Wt 118.0 kg
[~2020-07-28 03:06] MED LIST changes: +METH4TAB2 PO
--- NOTE | 2020-07-28 03:09 | PHYS DOC ---
Past History Past Medical History: Asthma, Bronchitis Past Surgical History: Cholecystectomy Smoking: Cigarettes, Quit Less Than 1 Year Alcohol Use: None Drug Use: None General Adult HPI: HPI: "..The weather change..and season change ..has really made my asthma flareup... I use my treatments.. But could not get a head on it..".." I got to coughing so hard .. I almost passed out....coughing so hard..I wet my pants.." Patient is a 30 year old female who presents with above hx and complaints of near syncope, severe dyspnea, cough, wheezing. Patient denies any change in meds. Not currently on steroids. Has never been intubated for asthma exacerbations. Currently is exposed to prisoners. Patient denies any current specific ill contacts. Does not know her best peak flow. Is up-to-date with vaccinations. Not currently on steroids. Normally follows with Dr. Jackson. No history of immunosuppression. Patient has quit smoking. Review of Systems: Review of Systems: Constitutional: Denies fever or chills Eyes: Denies change in visual acuity HENT: Denies nasal congestion or sore throat Respiratory: Complains of cough, wheezing, shortness of breath Cardiovascular: Denies chest pain or edema GI: Denies abdominal pain, nausea, vomiting, bloody stools or diarrhea : Denies dysuria Musculoskeletal: Denies back pain or joint pain Integument: Denies rash Neurologic: Denies headache, focal weakness or sensory changes. Near syncope with coughing spasms Endocrine: Denies polyuria or polydipsia Lymphatic: Denies swollen glands Psychiatric: Denies depression or anxiety Family History: Family History: Noncontributory to presentation Current Medications: Current Meds: See nursing for home meds Allergies: Allergies: Allergies Coded Allergies Type Severity Reaction Last Updated Verified Penicillins Allergy Intermediate 05/18/19 Yes Physical Exam: PE: Constitutional: in acute distress, non-toxic appearance. [] HENT: Normocephalic, atraumatic, bilateral external ears normal, oropharynx moist, no oral exudates, postpharyngeal drainage, nose swollen turbinates clear rhinorrhea Eyes: PERRLA, EOMI, conjunctiva normal, no discharge. [] Neck: Normal range of motion, no tenderness, supple, no stridor. [] Cardiovascular: Tachycardia heart rate regular rhythm, no murmur [] Lungs & Thorax: Bilateral breath sounds equal at apex with scattered wheezing throughout on auscultation []. Does have occasional coughing spasms Abdomen: Bowel sounds normal, soft, no tenderness, no masses, no pulsatile masses. Obese. Old surgical scar. Skin: Warm, dry, no erythema, no rash. [] Back: No tenderness, no CVA tenderness. [] Extremities: No tenderness, no cyanosis, no clubbing, ROM intact, no edema. No cording appreciated Neurologic: Alert and oriented X 3, normal motor function, normal sensory function, no focal deficits noted. [] Psychologic: Affect anxious , judgement normal, mood normal. [] EKG: EKG: My interpretation EKG shows a sinus tachycardia at 112 bpm. Nonspecific T wave changes but no findings of acute STEMI with contralateral changes [] Radiology/Procedures: Radiology/Procedures: [][address] [address] IMAGING REPORT Signed PATIENT: POP YU ACCOUNT: [id number] : 1990 LOCATION: ER AGE: 30 SEX: F EXAM STATUS: REG ER ORD. PHYSICIAN: KVNG VEGA MD REASON: dyspnea, cough , cp PROCEDURE: CHEST PA & LATERAL INDICATION: Reason: dyspnea, cough , cp / Spl. Instructions: / History: COMPARISON: June 23, 2020 FINDINGS: 2 views of chest obtained. Cardiac silhouette is unremarkable. Mild hypoexpansion without well-defined fo carlyn airspace consolidation. Mild degenerative changes spine IMPRESSION: * No focal airspace consolidation or edema. Electronically signed by: Dallas Moise MD (07/28/2020 5:04 AM) [id number] DICTATED AND SIGNED BY: DALLAS MOISE MD DATE: 07/28/20 050 CC: KVNG VEGA MD; KIMBERLY JACKSON PAC ~MTH0 0 Heart Score: C/O Chest Pain: No HEART Score for Chest Pain: HEART Score for Chest Pain Response (Comments) Value History Slighlty/Non-Suspicious 0 ECG Normal 0 Age < 45 0 Risk Factors 1 or 2 Risk Factors 1 Troponin < Normal Limit 0 Total 1 Risk Factors: Risk Factors: DM, Current or recent (<one month) smoker, HTN, HLP, family history of CAD, obesity. Risk Scores: Score 0 - 3: 2.5% MACE over next 6 weeks - Discharge Home Score 4 - 6: 20.3% MACE over next 6 weeks - Admit for Clinical Observation Score 7 - 10: 72.7% MACE over next 6 weeks - Early Invasive Strategies Course & Med Decision Making: Course & Med Decision Making Pertinent Labs and Imaging studies reviewed. (See chart for details) Patient's dyspnea gradually improved with duo nebs. Patient was started on Zithromax 500 mg continue at 250 mg a day. Patient to document peak flows pre and posttreatment. Show this record to primary care. Patient take prednisone 50 mg a day. Patient return if any concerns. Patient instructed on use MDI. Patient's peak flows went from 2 50- to 350. Patient is predicted is 450. Patient return if any concerns. Must follow-up. Continue her tobacco cessation. Depression: 1. Acute asthma exacerbation 2. Upper respiratory infection 3. Mild leukocytosis 13.5 [] Dragon Disclaimer: Dragon Disclaimer: This electronic medical record was generated, in whole or in part, using a voice recognition dictation system. Departure Departure: Referrals: KIMBERLY JAKCSON (PCP) Scripts Azithromycin (ZITHROMAX) 250 Mg Tablet 250 MG PO DAILY for ANTI-BIOTIC for 5 Days, #5 TAB 0 Refills Prov: KVNG VEGA MD 07/28/20 Prednisone (PREDNISONE) 50 Mg Tablet 50 MG PO DAILY for asthma for 5 Days, #5 TAB Prov: KVNG VEGA MD 07/28/20 Dragamrit Disclaimer This chart was dictated in whole or in part using Voice Recognition software in a busy, high-work load, and often noisy Emergency Department environment. It may contain unintended and wholly unrecognized errors or omissions. Dragon Disclaimer This chart was dictated in whole or in part using Voice Recognition software in a busy, high-work load, and often noisy Emergency Department environment. It may contain unintended and wholly unrecognized errors or omissions. KVNG VEGA MD July 28, 2020 03:09
[2020-07-28] MEDS: IV RINGERS SOLUTION,LACTATED 1,000 ML IV SCH (03:31)
[2020-07-28] MEDS: IPRATRPIUM/ALBUTEROL 0.5/2.5MG 3 ML NEBU. NEB ONE (03:31)
--- NOTE | 2020-07-28 03:45 | EKG ---
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
[2020-07-28 04:00] LABS: ANION GAP 11 (6-14); BLOOD UREA NITROGEN 7 mg/dL (7-20); CALCIUM 9.4 mg/dL (8.5-10.1); CARBON DIOXIDE 25 mmol/L (21-32); CHLORIDE 103 mmol/L (98-107); CREATININE 0.8 mg/dL (0.6-1.0); GFR 83.7; GLUCOSE 105 mg/dL (70-99); SODIUM 139 mmol/L (136-145)
[2020-07-28 04:02] LABS: BASO # 0.1 x10^3/uL (0.0-0.2); BASO % 1 % (0-3); EOS # 0.9 x10^3/uL (0.0-0.7); EOS % 7 % (0-3); HEMATOCRIT 44.2 % (36.0-47.0); HEMOGLOBIN 14.6 g/dL (12.0-15.5); LYMPH # 1.9 x10^3/uL (1.0-4.8); LYMPH % 14 % (24-48); MEAN CORPUSCULAR HEMOGLOBIN 28 pg (25-35); MEAN CORPUSCULAR HGB CONC 33 g/dL (31-37); MEAN CORPUSCULAR VOLUME 86 fL (79-100); MONO # 0.7 x10^3/uL (0.0-1.1); MONO % 5 % (0-9); NEUT # 9.9 x10^3uL (1.8-7.7); NEUT % 73 % (31-73); PLATELET COUNT 358 x10^3/uL (140-400); RED BLOOD COUNT 5.16 x10^6/uL (3.50-5.40); RED CELL DISTRIBUTION WIDTH 14.9 % (11.5-14.5); WHITE BLOOD COUNT 13.5 x10^3/uL (4.0-11.0)
[2020-07-28 04:08] LABS: ALBUMIN 3.5 g/dL (3.4-5.0); ALK PHOS 67 U/L (46-116); ALT (SGPT) 28 U/L (14-59); AST (SGOT) 26 U/L (15-37); LIPASE 114 U/L (73-393); TOTAL BILIRUBIN 0.3 mg/dL (0.2-1.0); TOTAL PROTEIN 8.8 g/dL (6.4-8.2)
[2020-07-28 04:17] LABS: DIRECT BILIRUBIN < 0.1 mg/dL (0.0-0.2); POTASSIUM 4.6 mmol/L (3.5-5.1)
[2020-07-28 04:57] LABS: AMPHETAMINE/METHAMPHETAMINE NEG (NEG); BARBITURATES NEG (NEG); BENZODIAZEPINES NEG (NEG); CANNABINOIDS NEG (NEG); COCAINE NEG (NEG); METHADONE NEG (NEG); OPIATES NEG (NEG); PHENCYCLIDINE NEG (NEG)
[2020-07-28 05:02] LABS: BILIRUBIN,URINE NEG (NEG); CLARITY,URINE CLEAR; COLOR,URINE YELLOW; GLUCOSE,URINE NEG (NEG); NITRITE,URINE NEG (NEG); UROBILINOGEN,URINE 0.2 mg/dL (0.2 mg/dL)
[2020-07-28] MEDS ORDERED: methylPREDNISolone SOD SUCC PF 125 MG/2 ML VIAL. ONE (05:02)
[2020-07-28 05:03] LABS: BACTERIA,URINE 0 /HPF (0-FEW); SQUAMOUS EPITHELIAL CELL,UR OCC /LPF; WBC,URINE OCC /HPF (0-4)
[2020-07-28] MEDS: AZITHROMYCIN 250 MG TABLET. PO ONE (05:04)
[2020-07-28] MEDS: methylPREDNISolone SOD SUCC PF 125 MG/2 ML VIAL. IV ONE (05:05)
--- NOTE | 2020-07-28 05:06 | RAD ---
INDICATION: Reason: dyspnea, cough , cp / Spl. Instructions: / History: COMPARISON: June 23, 2020 FINDINGS: 2 views of chest obtained. Cardiac silhouette is unremarkable. Mild hypoexpansion without well-defined focal airspace consolidat ion. Mild degenerative changes spine IMPRESSION: * No focal airspace consolidation or edema. Electronically signed by: Arturo Stover MD (07/28/2020 5:04 AM) [id number]
[2020-07-28] MEDS ORDERED: ALBUTEROL SULFATE 8GM INHALER. ONE (05:09)
[2020-07-28] MEDS ORDERED: AZIT250T PO (05:14)
[2020-07-28] MEDS ORDERED: PRED50TA PO (05:14)
[2020-07-28 05:30] VITALS: BP 144/78
== END 2020-07-28 05:30 | disposition home or self-care (01) ==
LOC: ER 03:06
DX: J45.901 Unspecified asthma with (acute) exacerbation (principal); J06.9 Acute upper respiratory infection, unspecified; D72.829 Elevated white blood cell count, unspecified; R55 Syncope and collapse; Z87.891 Personal history of nicotine dependence; Z88.0 Allergy status to penicillin
CPT/HCPCS: 36415; 71046; 80048; 80076; 80307; 81001; 81025; 82550; 83690; 83735; 83880; 84443; 84484; 85025; 85379; 85610; 85730; 93005; 94640; 96361; 96374; 99285; J2930; J7120

== ENCOUNTER → 2021-07-17 | Outpatient (CLI) | payer OTHER ==
[~2021-07-17] MED LIST changes: +AZIT250T PO; -CLIN150C15 PO; +CLIN150C16 PO; -CYCL-331 PO; +CYCL10TA19 PO
--- NOTE | 2021-07-18 08:30 | RAD ---
INDICATION: Reason: abnormal uterine bleeding / Spl. Instructions: / History: COMPARISON: None. TECHNIQUE: Grayscale and color ultrasound images uterus and adnexa. Transabdominal images obtained. FINDINGS: Uterus: 108 x 70 x 54 mm. 7 mm endometrial stripe Right Ovary: 27 x 16 x 15 mm. Left Ovary: 32 x 21 x 16 mm. Vascular flow identified to bilateral ovaries. IMPRESSION: * Vascular flow seen to the ovaries. * Endometrial stripe is unremarkable for a premenopausal patient. Electronically signed by: Arturo Stvoer MD (07/18/2021 8:27 AM) [id number]
== END ==
LOC: US 16:00
PROVIDERS: ATTEND Physician Assistant
DX: N93.8 Other specified abnormal uterine and vaginal bleeding (principal)
CPT/HCPCS: 76856